=== PATIENT | female | born 1995 | race American Indian/Alaskan Native ===

== ENCOUNTER 2018-11-09 11:51 | Emergency (ER) | payer MEDICAID, OTHER ==
[2018-11-09 11:57] VITALS: BMI 38.0
[2018-11-09 12:03] VITALS: RESP 18; TEMP 98.5
[2018-11-09] MEDS ORDERED: Sodium Chloride 0.9% 1,000 ML IV STA (12:16)
[2018-11-09 12:33] LABS: PH,URINE 7.5 (4.7-8.0); URINE BILIRUBIN NEGATIVE (NEGATIVE); URINE BLOOD NEGATIVE (NEGATIVE); URINE GLUCOSE (UA) NEGATIVE (NEGATIVE); URINE LEUKOCYTE ESTERASE MODERATE Leu/uL (NEGATIVE); URINE PROTEIN NEGATIVE mg/dL (<30 mg/dL); URINE UROBILINOGEN 0.2 E.U./dL (<1 E.U./dL)
[2018-11-09 12:35] LABS: URINE APPEARANCE SL CLOUDY (CLEAR); URINE COLOR YELLOW (YELLOW)
[2018-11-09 12:36] LABS: HCG,QUALITATIVE URINE POSITIVE (NEGATIVE)
[2018-11-09 12:45] LABS: URINE BACTERIA SMALL /hpf; URINE RBC NEGATIVE /hpf (0-2)
[2018-11-09 13:08] LABS: BASO # 0.03 K/mm3 (0.0-2.0); BASO % 0.4 % (0.0-3.0); EOS # 0.3 (0.0-0.7); GRAN # 4.47 (1.4-6.5); HEMOGLOBIN 12.2 g/dL (12.0-16.0); LYMPH # 2.2 (1.2-3.4); LYMPH % 28.9 % (22.0-35.0); MEAN CELL VOLUME 86.4 fl (80.0-105.0); MEAN CORPUSCULAR HEMOGLOBIN 29.7 pg (25.0-35.0); MEAN CORPUSCULAR HGB CONC 34.4 g/dl (31.0-37.0); MEAN PLATELET VOLUME 9.7 fl (7.0-11.0); MONO # 0.6 (0.1-0.6); MONO % 7.7 % (1.0-6.0); RBC 4.11 10^6/uL (3.5-6.1); RED CELL DISTRIBUTION WIDTH 13.1 % (11.5-14.5); WHITE BLOOD COUNT 7.6 10^3/uL (4.5-11.0)
[2018-11-09 13:13] LABS: INR 1.23; PARTIAL THROMBOPLASTIN TIME 30.3 Seconds (25.1-36.5); PROTHROMBIN TIME 14.2 SECONDS (9.4-12.5)
[2018-11-09 13:33] LABS: ALB/GLOB RATIO 1.4 (1.1-1.8); ALBUMIN 4.2 g/dL (3.0-4.8); ALT/SGPT 20 U/L (7-56); AST/SGOT 18 U/L (14-36); BLOOD UREA NITROGEN 7 mg/dL (7-21); CALCIUM 9.7 mg/dL (8.4-10.5); GFR NON-AFRICAN AMERICAN > 60
[2018-11-09] MEDS ORDERED: Potassium Chloride 20 mEq ER Tab PO STA (13:38)
--- NOTE | 2018-11-09 14:28 | ED PDOC ---
Arrival/HPI - General Chief Complaint: Abdominal Pain Time Seen by Provider: 11/09/18 11:53 Historian: Patient - History of Present Illness Narrative History of Present Illness (Text): 11/09/18 14:17 23 year old female, , with no significant past medical history, presents to the emergency department complaining of abdominal pain and vomiting since yesterday. Patient reports pain in the suprapubic and pelvic region and non- bloody vomit yesterday. She notes she took two at home tests and states one came back positive and the other negative. LNMP was September 28, she is currently in no pain, but would like to know how far along she is in her . Patient denies vaginal bleeding, vaginal discharge, dysuria, hematuria, fevers, chills, headache, dizziness, chest pain, shortness of breath, dyspnea on exertion, cough, diarrhea, back pain, neck pain, or any other complaint. Time/Duration: 24 hours Symptom Course: Unchanged Activities at Onset: Light Context: Home Past Medical History - Provider Review Nursing Documentation Reviewed: Yes - Psychiatric Hx Substance Use: Yes - Surgical History Hx Tonsillectomy: Yes - Anesthesia Hx Anesthesia: Yes Hx Anesthesia Reactions: No Hx Malignant Hyperthermia: No Family/Social History - Physician Review Nursing Documentation Reviewed: Yes Family/Social History: No Known Family HX Smoking Status: Light Smoker < 10 Cigarettes Daily Hx Alcohol Use: Yes Hx Substance Use: Yes Substance used: marijuana Allergies/Home Meds Allergies/Adverse Reactions: Allergies peanut Allergy (Verified 11/09/18 12:03) ANGIOEDEMA Review of Systems - Physician Review All systems were reviewed & negative as marked: Yes - Review of Systems Constitutional: absent: Fevers Respiratory: absent: SOB, Cough Cardiovascular: absent: Chest Pain Gastrointestinal: Abdominal Pain, Vomiting. absent: Diarrhea Genitourinary Female: absent: Dysuria, Hematuria, Vaginal Bleeding, Vaginal Discharge Musculoskeletal: absent: Back Pain, Neck Pain Neurological: absent: Headache, Dizziness Physical Exam Vital Signs Reviewed: Yes Vital Signs Temp Pulse Resp BP Pulse Ox 11/09/18 11:57 98.5 F 106 H 18 120/76 96 Temperature: Afebrile Blood Pressure: Normal Pulse: Tachycardic Respiratory Rate: Normal Appearance: Positive for: Well-Appearing, Non-Toxic, Comfortable, Other (morbidly obese) Pain Distress: None Mental Status: Positive for: Alert and Oriented X 3 - Systems Exam Head: Present: Atraumatic, Normocephalic Pupils: Present: PERRL Extroacular Muscles: Present: EOMI Conjunctiva: Present: Normal Mouth: Present: Moist Mucous Membranes Neck: Present: Normal Range of Motion Respiratory/Chest: Present: Clear to Auscultation, Good Air Exchange. No: Respiratory Distress, Accessory Muscle Use Cardiovascular: Present: Regular Rate and Rhythm, Normal S1, S2. No: Murmurs Abdomen: No: Tenderness, Distention, Peritoneal Signs Genitourinary/Pelvic Exam: No: Vaginal Discharge, Vaginal Bleeding Back: Present: Normal Inspection Upper Extremity: Present: Normal Inspection. No: Cyanosis, Edema Lower Extremity: Present: Normal Inspection. No: Edema Neurological: Present: GCS=15, CN II-XII Intact, Speech Normal Skin: Present: Warm, Dry, Normal Color. No: Rashes Psychiatric: Present: Alert, Oriented x 3, Normal Insight, Normal Concentration Medical Decision Making ED Course and Treatment: 11/09/18 14:30 Impression: 23 year old female who presents to the emergency department complaining of vomiting and abdominal pain. Plan: -- Labs -- Flagyl -- K-Dur -- Potassium Chloride -- IV fluids -- Urine Culture -- Urinalysis -- Urinalysis with micro -- OB Transvaginal US -- Transvaginal US -- Reassess and disposition Prior Visits: Notes and results from previous visits were reviewed. Progress Notes: 11/09/18 14:58 FINDINGS: The uterus measures 7.6 x 5.2 x 6.6 centimeters. There is an intrauterine gestational sac measuring 1.4 cm corresponding to 5 weeks 4 days. pole is present corresponding to 6 weeks and 3 days. heart motion is observed. The ovaries have a normal appearance. IMPRESSION: As above. 11/09/18 19:18Lab was reviewed and she had UTI and trichomoniasis. She was treated with Flagyl and DC home with Macrobid. Potassium was repleted. She requested info for and [facility] - Lab Interpretations Lab Results: 11/09/18 13:00 11/09/18 13:00 Lab Results 11/09/18 13:00: Beta HCG, Quant 41404.00 H 11/09/18 13:00: Sodium 137, Potassium 3.0 L, Chloride 104, Carbon Dioxide 28, Anion Gap 9 L, BUN 7, Creatinine 0.6 L, Est GFR ( Amer) > 60, Est GFR (Non-Af Amer) > 60, Random Glucose 92, Calcium 9.7, Total Bilirubin 0.2, AST 18, ALT 20, Alkaline Phosphatase 49, Total Protein 7.4, Albumin 4.2, Globulin 3.1, Albumin/Globulin Ratio 1.4 11/09/18 13:00: PT 14.2 H, INR 1.23, APTT 30.3 11/09/18 13:00: WBC 7.6, RBC 4.11, Hgb 12.2, Hct 35.5 L, MCV 86.4, MCH 29.7, MCHC 34.4, RDW 13.1, Plt Count 329, MPV 9.7, Gran % 59.0, Lymph % (Auto) 28.9, [place] % (Auto) 7.7 H, Eos % (Auto) 4.0, Baso % (Auto) 0.4, Gran # 4.47, Lymph # (Auto) 2.2, [place] # (Auto) 0.6, Eos # (Auto) 0.3, Baso # (Auto) 0.03 11/09/18 12:15: Urine Color Yellow, Urine Appearance Sl cloudy, Urine pH 7.5, Ur Specific [place] 1.020, Urine Protein Negative, Urine Glucose (UA) Negative, Urine Ketones Negative, Urine Blood Negative, Urine Nitrate Negative, Urine Bilirubin Negative, Urine Urobilinogen 0.2, Ur Leukocyte Esterase Moderate H, Urine RBC Negative, Urine WBC 10 - 15 H, Ur Epithelial Cells 4 - 5, Urine Bacteria Small, Urine Other Trichomonas, Urine HCG, Qual Positive I have reviewed the lab results: Yes - RAD Interpretation Radiology Orders: 11/09/18 12:15 OB TRANSVAGINAL [US] Stat - Medication Orders Current Medication Orders: Potassium Chloride (Potassium Chloride 20 Meq/100 Ml) 20 meq in 100 mls @ 50 mls/hr IVPB Q2H STA Stop: 11/09/18 15:37 Last Admin: 11/09/18 14:01 Dose: 50 mls/hr eMAR Start Stop Document 11/09/18 14:01 OCS (Rec: 11/09/18 14:01 OCS [id number]) Intravenous Solution Start Date 11/09/18 Start Time 14:01 End Date 11/09/18 End time 16:01 Total Infusion Time 120 Discontinued Medications Sodium Chloride (Sodium Chloride 0.9%) 1,000 mls @ 999 mls/hr IV .Q1H1M STA Stop: 11/09/18 13:16 Last Admin: 11/09/18 12:50 Dose: 999 mls/hr eMAR Start Stop Document 11/09/18 12:50 OCS (Rec: 11/09/18 12:50 OCS [id number]) Intravenous Solution Start Date 11/09/18 Start Time 12:50 End Date 11/09/18 End time 13:51 Total Infusion Time 61 Potassium Chloride (K-Dur 20 Meq Er Tab) 40 meq PO STAT STA Stop: 11/09/18 13:39 Last Admin: 11/09/18 14:01 Dose: 40 meq - Scribe Statement The provider has reviewed the documentation as recorded by the Sheyla Rivera Provider Scribe Attestation: All medical record entries made by the Scribtuan were at my direction and personally dictated by me. I have reviewed the chart and agree that the record accurately reflects my personal performance of the history, physical exam, medical decision making, and the department course for this patient. I have also personally directed, reviewed, and agree with the discharge instructions and disposition. Disposition/Present on Arrival - Present on Arrival Any Indicators Present on Arrival: No History of DVT/PE: No History of Uncontrolled Diabetes: No Urinary Catheter: No History of Decub. Ulcer: No History Surgical Site Infection Following: None - Disposition Have Diagnosis and Disposition been Completed?: Yes Diagnosis: Abdominal pain affecting , Trichomoniasis, UTI (urinary tract infection), Hypokalemia Disposition: HOME/ ROUTINE Disposition Time: 15:00 Patient Plan: Discharge Condition: STABLE Discharge Instructions (ExitCare): Urinary Tract Infections in Adults, Trichomoniasis, Hypokalemia (DC) Additional Instructions: Follow up with OB Drink plenty of fluid Return to ED for any new symptoms Prescriptions: Nitrofurantoin Macrocrystals [Macrobid] 100 mg PO BID #14 cap Vit #76/Iron,Carb/FA [Prenatabs Rx] 1 tab PO DAILY #30 tab Referrals: [email or web address] [Other] - Follow up with primary Kaz Almaguer MD [Staff Provider] - Follow up with primary Forms: [employer] (Swiss)
--- NOTE | 2018-11-09 14:58 | US ---
Date of service: 11/09/2018 PROCEDURE: HISTORY: abdominal pain/ COMPARISON: TECHNIQUE: FINDINGS: The uterus measures 7.6 x 5.2 x 6.6 centimeters. There is an intrauterine gestational sac measuring 1.4 cm corresponding to 5 weeks 4 days. pole is present corresponding to 6 weeks and 3 days. heart motion is observed. The ovaries have a normal appearance. IMPRESSION: As above.
[2018-11-09 15:20] VITALS: BP 107/53; PULSE 76; O2SAT 99
== END 2018-11-09 15:30 | disposition home or self-care (01) ==
LOC: ED 11:51 → MERGE 11:51 → ED 15:30
DX: O23.41 Unspecified infection of urinary tract in pregnancy, first trimester (principal); O26.891 Other specified pregnancy related conditions, first trimester; A59.9 Trichomoniasis, unspecified; E87.6 Hypokalemia; Z3A.01 Less than 8 weeks gestation of pregnancy
CPT/HCPCS: 76817; 80053; 81001; 84702; 84703; 85025; 85610; 85730; 87086; 96361; 96365; 96366; 99283; J3480; J7030